=== PATIENT | male | born 1990 | race American Indian/Alaskan Native ===

== ENCOUNTER 2016-07-03 11:15 | Emergency (ER) | payer OTHER ==
[2016-07-03 11:24] VITALS: BP 115/76
[2016-07-03] MEDS ORDERED: EAR WAX DROPS AU ONE (12:01)
[2016-07-03] MEDS ORDERED: HYDROGEN PEROXIDE TP ONE (12:02)
--- NOTE | 2016-07-03 12:10 | Emergency Department Report ---
ED ENT HPI - General Chief complaint: Upper Respiratory Infection Stated complaint: HEADACHE/NASAL CONGESTION/DIFFICULTY HEARING Time Seen by Provider: 07/03/16 11:48 Source: patient Mode of arrival: Ambulatory Limitations: No Limitations - History of Present Illness Initial comments: PT c/o his ears feeling clogged and his hearing has been decreased for 3 months. PT states last week he was sick and went to . PT states that he was told that his sinuses were swollen and told that he needed to buy an ear pump. PT states he went to the store and bought one, but it has not helped. PT does report using qtips. PT states his uri symptoms that he had last week have improved. PT states he has not felt like this before. - Related Data Allergies Allergy/AdvReac Type Severity Reaction Status Date / Time No Known Allergies Allergy Unverified 07/03/16 11:24 ED Dental HPI - General Chief complaint: Upper Respiratory Infection Stated complaint: HEADACHE/NASAL CONGESTION/DIFFICULTY HEARING Time Seen by Provider: 07/03/16 11:48 Source: patient Mode of arrival: Ambulatory Limitations: No Limitations - Related Data Allergies Allergy/AdvReac Type Severity Reaction Status Date / Time No Known Allergies Allergy Unverified 07/03/16 11:24 ED Review of Systems ROS: Stated complaint: HEADACHE/NASAL CONGESTION/DIFFICULTY HEARING Other details as noted in HPI Comment: All other systems reviewed and negative Constitutional: denies: chills, diaphoresis ENT: ear pain ("feels clogged"), hearing loss. denies: congestion (pt states he had last week, but it resolved ) Respiratory: denies: cough, shortness of breath ED Past Medical Hx - Past Medical History Previous Medical History?: No - Surgical History Past Surgical History?: No - Social History Smoking Status: Never Smoker Substance Use Type: Alcohol ED Physical Exam - General Limitations: No Limitations General appearance: alert, in no apparent distress - Head Head exam: Present: atraumatic, normocephalic, normal inspection - Eye Eye exam: Present: normal appearance, PERRL, EOMI. Absent: conjunctival injection Pupils: Present: normal accommodation - ENT ENT exam: Present: normal external ear exam - Expanded ENT Exam Expanded TM/Canal exam: Cerumen Impaction: Right TM, Left TM (unable to see TMs janny due to wax ) Mouth exam: Absent: drooling, trismus Throat exam: Positive: normal inspection - Neck Neck exam: Present: normal inspection, full ROM. Absent: lymphadenopathy - Respiratory Respiratory exam: Present: normal lung sounds bilaterally. Absent: respiratory distress, chest wall tenderness - Cardiovascular Cardiovascular Exam: Present: regular rate, normal rhythm, normal heart sounds - GI/Abdominal GI/Abdominal exam: Present: soft. Absent: tenderness - Extremities Exam Extremities exam: Present: normal inspection, full ROM - Back Exam Back exam: Present: normal inspection, full ROM - Neurological Exam Neurological exam: Present: alert, oriented X3, normal gait - Psychiatric Psychiatric exam: Present: normal affect, normal mood - Skin Skin exam: Present: warm, dry, intact, normal color ED Course Vital Signs 07/03/16 11:21 Temperature 98.8 F Pulse Rate 63 Respiratory 18 Rate Blood Pressure 115/76 O2 Sat by Pulse 100 Oximetry - Reevaluation(s) Reevaluation #1: 07/03/16 12:05 PT gave verbal consent for cerumen removal, however, unable to remove cerumen with plastic curette, pt aware of plan of care. PT given verbal instructions to refrain from using q tips to clean the inner ear. Reevaluation #2: 07/03/16 13:48 Pt tolerated cerumen removal. no immediate complications. - Foreign Body Removal Ear Location: ear canal (R) (janny) Foreign Body Suspected: other (cerumen impaction) Foreign Body Removed: yes Foreign Body Removal Technique: irrigation Tympanic Membrane Intact: Yes Patient Tolerated Procedure: well - Pulse Oximetry Interpretation Digit-Finger Initial Pulse Oximetry Readin Actions Taken: none ED Medical Decision Making - Differential Diagnosis om, sinusitis, oe, cerumen impaction Critical Care Time: No Critical care attestation.: If time is entered above; I have spent that time in minutes in the direct care of this critically ill patient, excluding procedure time. ED Disposition Clinical Impression: Bilateral impacted cerumen Disposition: DISCHARGED TO HOME OR SELFCARE Is pt being admited?: No Does the pt Need Aspirin: No Condition: Stable Instructions: Cerumen Impaction (ED) Referrals: PRIMARY CARE, [Primary Care Provider] - 3-5 Days VINNIE BRAMBILA MD [Staff Physician] - 3-5 Days [facility] [Outside] - 3-5 Days [facility] [Outside] - 3-5 Days Time of Disposition: 13:50
== END 2016-07-03 14:31 | disposition home or self-care (01) ==
LOC: ED 11:15
DX: H61.23 Impacted cerumen, bilateral (principal)

== ENCOUNTER 2017-10-06 12:11 | Emergency (ER) | payer BC, OTHER ==
[2017-10-06 12:34] VITALS: BP 141/91
[2017-10-06] MEDS ORDERED: NACL 0.9% 1000 ML 1,000 ML IV ONE (12:35)
[2017-10-06 13:17] LABS: Basophils % (Auto) 0.7 % (0.0-1.8); Eosinophils # (Auto) 0.1 K/mm3 (0.0-0.4); Eosinophils % (Auto) 1.5 % (0.0-4.3); Hematocrit 42.8 % (35.5-45.6); Hemoglobin 14.7 gm/dl (11.8-15.2); Lymphocytes # (Auto) 1.6 K/mm3 (1.2-5.4); Lymphocytes % (Auto) 34.6 % (13.4-35.0); Mean Corpuscular HGB Conc 34 % (32-34); Mean Corpuscular Hemoglobin 30 pg (28-32); Mean Corpuscular Volume 86 fl (84-94); Monocytes # (Auto) 0.5 K/mm3 (0.0-0.8); Platelet Count 199 K/mm3 (140-440); Red Blood Count 4.99 M/mm3 (3.65-5.03)
[2017-10-06 13:45] LABS: Alanine Aminotransferase 46 units/L (7-56); Albumin 4.4 g/dL (3.9-5); BUN/Creatinine Ratio 13; Blood Urea Nitrogen 12 mg/dL (9-20); Calcium 9.1 mg/dL (8.4-10.2); Hemolysis Index 22
[2017-10-06 14:07] LABS: Bilirubin,Urine NEG (Negative); Blood,Urine NEG (Negative); Color,Urine Yellow (Yellow); Mucus,Urine FEW /HPF; Protein,Urine <15 mg/dL mg/dL (Negative); WBC,Urine < 1.0 /HPF (0.0-6.0)
--- NOTE | 2017-10-06 14:12 | Emergency Department Report ---
ED Abdominal Pain HPI - General Chief Complaint: Abdominal Pain Stated Complaint: ABD PAIN Time Seen by Provider: 10/06/17 14:02 Source: patient Mode of arrival: Ambulatory Limitations: No Limitations - History of Present Illness Initial Comments: This is a 27-year-old male nontoxic, well nourished in appearance, no acute signs of distress presents to the ED with c/o of loose stole and abdominal pain 1 day. Patient denies any nausea or vomiting. Patient describes abdominal pain as cramping and aching with level of 3/10 diffuse. Patient stated that pain has currently stopped and subsided. Patient stated it was loose stole but not diarrhea. Patient denies chest pain, short of breath, fever, chills, headache, stiff neck, abdominal pain, back pain, numbness or tingling. Patient denies any diarrhea or constipation. Patient denies any recent travels. Patient stated denies any allergies or PMH. MD Complaint: abdominal pain -: days(s) (1) Location: diffuse Radiation: none Migration to: no migration Severity: mild Severity scale (0 -10): 0 Quality: cramping, aching Consistency: now resolved Improves With: nothing Worsens With: nothing Associated Symptoms: denies: nausea, vomiting, diarrhea, fever, chills, constipation, dysuria, hematemesis, hematochezia, melena, hematuria, anorexia, syncope - Related Data Previous Rx's Medication Instructions Recorded Last Taken Type Ibuprofen [Motrin] 600 mg PO Q8H PRN #30 tablet 10/06/17 Unknown Rx Allergies Allergy/AdvReac Type Severity Reaction Status Date / Time No Known Allergies Allergy Verified 10/06/17 12:30 ED Review of Systems ROS: Stated complaint: ABD PAIN Other details as noted in HPI Constitutional: denies: chills, fever Eyes: denies: eye pain, eye discharge, vision change ENT: denies: ear pain, throat pain Respiratory: denies: cough, shortness of breath, wheezing Cardiovascular: denies: chest pain, palpitations Endocrine: no symptoms reported Gastrointestinal: abdominal pain. denies: nausea, vomiting, diarrhea, constipation Genitourinary: denies: urgency, dysuria Musculoskeletal: denies: back pain, joint swelling, arthralgia Skin: denies: rash, lesions Neurological: denies: headache, weakness, paresthesias Psychiatric: denies: anxiety, depression Hematological/Lymphatic: denies: easy bleeding, easy bruising ED Past Medical Hx - Past Medical History Previous Medical History?: No - Surgical History Past Surgical History?: No - Social History Smoking Status: Never Smoker Substance Use Type: None - Medications Home Medications: Home Medications Medication Instructions Recorded Confirmed Last Taken Type Ibuprofen [Motrin] 600 mg PO Q8H PRN #30 tablet 10/06/17 Unknown Rx ED Physical Exam - General Limitations: No Limitations General appearance: alert, in no apparent distress - Head Head exam: Present: atraumatic, normocephalic - Eye Eye exam: Present: normal appearance Pupils: Present: normal accommodation - ENT ENT exam: Present: normal exam, mucous membranes moist - Neck Neck exam: Present: normal inspection, full ROM. Absent: tenderness, meningismus, lymphadenopathy - Respiratory Respiratory exam: Present: normal lung sounds bilaterally. Absent: respiratory distress, wheezes, rales, rhonchi, stridor, chest wall tenderness, accessory muscle use, decreased breath sounds, prolonged expiratory - Cardiovascular Cardiovascular Exam: Present: regular rate, normal rhythm, normal heart sounds. Absent: bradycardia, tachycardia, irregular rhythm, systolic murmur, diastolic murmur, rubs, gallop - GI/Abdominal GI/Abdominal exam: Present: soft, normal bowel sounds. Absent: distended, tenderness, guarding, rebound, rigid, diminished bowel sounds, hyperactive bowel sounds, hypoactive bowel sounds, mass, bruit, hernia - Expanded GI/Abdominal Exam Expanded GI/Abdominal exam: Absent: psoas sign, obturator sign, heel tap sign, Lares's sign, Rovsing's sign, tenderness at Mcburney's Point, ascites - Rectal Rectal exam: Present: deferred - Extremities Exam Extremities exam: Present: normal inspection, full ROM, normal capillary refill - Back Exam Back exam: Present: normal inspection, full ROM. Absent: tenderness, CVA tenderness (R), CVA tenderness (L), muscle spasm, paraspinal tenderness, vertebral tenderness, rash noted - Neurological Exam Neurological exam: Present: alert, oriented X3, normal gait - Psychiatric Psychiatric exam: Present: normal affect, normal mood - Skin Skin exam: Present: warm, dry, intact, normal color. Absent: rash ED Course Vital Signs 10/06/17 12:30 Temperature 97.9 F Pulse Rate 64 Respiratory 16 Rate Blood Pressure 141/91 O2 Sat by Pulse 96 Oximetry - Reevaluation(s) Reevaluation #1: 10/06/17 14:13 Patient is speaking in full sentences with no signs of distress noted. ED Medical Decision Making - Lab Data Result diagrams: 10/06/17 12:46 10/06/17 12:46 - Medical Decision Making This is a 27-year-old male that presents with abdominal pain. Patient is stable and was examined by me. There is no abdominal tenderness. Patient staed that all symptoms has resovled and subsided. Patient is requesting a work excuse note. Negative signs of symptoms of appendicitis. Labs obtained. UXray of abdomen obtained and dictated by the radiologist. Patient is notified of the report with no questions noted by the patient. Vital signs are stable prior to discharge. A by mouth challenge has been obtained and patient tolerated well with no nausea vomiting. Patient was notified of strict precautions of appendicitis symptoms and to return to the ED if symptoms occurs as soon as possible. Patient was also instructed to Follow-up with a primary care doctor in 3-5 days or if symptoms worsen and continue return to emergency room as soon as possible. At time of discharge, the patient does not seem toxic or ill in appearance. No acute signs of distress noted. Patient agrees to discharge treatment plan of care. No further questions noted by the patient. Critical care attestation.: If time is entered above; I have spent that time in minutes in the direct care of this critically ill patient, excluding procedure time. ED Disposition Clinical Impression: Abdominal pain Qualifiers: Abdominal location: generalized Qualified Code(s): R10.84 - Generalized abdominal pain Disposition: TO HOME OR SELFCARE Is pt being admited?: No Does the pt Need Aspirin: No Condition: Stable Instructions: Abdominal Pain (ED) Additional Instructions: Follow-up with a primary care doctor in 3-5 days or if symptoms worsen and continue return to emergency room as soon as possible. Prescriptions: Ibuprofen [Motrin] 600 mg PO Q8H PRN #30 tablet PRN Reason: Pain Referrals: PRIMARY CAREMD [Primary Care Provider] - 3-5 Days PERFECTO MART MD [Staff Physician] - 3-5 Days [facility] [Outside] - 3-5 Days [facility] [Outside] - 3-5 Days Forms: Work/School Release Form(ED)
--- NOTE | 2017-10-06 17:30 | XRay Report ---
FINAL REPORT PROCEDURE: XR ABDOMEN 1V AP TECHNIQUE: AP supine portable radiograph of the abdomen was obtained at 10/06/2017 15:27 (T) . HISTORY: Abdominal pain. COMPARISON: No prior studies are available for comparison. FINDINGS: Bowel gas pattern: Mildly reactive nonobstructive bowel gas pattern. Masses or calcifications: None. Bony structures: Normal. Other: None. IMPRESSION: Mildly reactive nonobstructive bowel gas pattern. Consider ileus or enteritis.
== END 2017-10-06 17:48 | disposition home or self-care (01) ==
LOC: ED 12:11
DX: R10.84 Generalized abdominal pain (principal)
CPT/HCPCS: 36415; 74018; 80053; 81001; 85025; 99284

== ENCOUNTER 2020-10-04 07:57 | Emergency (ER) | payer SELFPAY ==
[2020-10-04 08:27] VITALS: BP 134/95
--- NOTE | 2020-10-04 08:52 | Emergency Department Report ---
Chief Complaint: Urogenital-Male Stated Complaint: PAIN IN PRIVATE AREA Time Seen by Provider: 10/04/20 08:42 - HPI History of Present Illness: 30-year-old male presents to the ER today with complaints of penile discharge. Patient states that while he was at work last night, he noticed discomfort when the head of his penis rubbed against his pants and this morning noticed small yellow discharge. He denies any dysuria, hematuria, urinary frequency or urgency. He denies associated lower abdominal pain, back pain testicular pain or swelling. He does admit to having multiple sexual partners. He states that they have been protected, but there are few times when the "condom busted". He reports no additional symptoms at this time. - Exam Vital Signs: Vital Signs 10/04/20 08:26 Temperature 98.6 F Pulse Rate 62 Respiratory 20 Rate Blood Pressure 134/95 [Right] O2 Sat by Pulse 96 Oximetry MSE screening note: Focused history and physical exam performed. Due to findings the following was ordered: ED Medical Decision Making - Medical Decision Making 30-year-old male presents to the ER today with complaints of penile discharge. Patient states that while he was at work last night, he noticed discomfort when the head of his penis rubbed against his pants and this morning noticed small yellow discharge. He denies any dysuria, hematuria, urinary frequency or urgency. He denies associated lower abdominal pain, back pain testicular pain or swelling. He does admit to having multiple sexual partners. He states that they have been protected, but there are few times when the "condom busted". He reports no additional symptoms at this time. 0854: Patient is well-appearing, nontoxic and not in any acute distress. He is neurologically intact with a normal gait. His vital signs are stable. Informed patient he does need to get tested and treated especially for possible STDs but at this time he does not have a life-threatening condition that requires emergent intervention. Patient was provided a list of local clinics that he can follow-up with to get his testing done and treatment. Patient expressed understanding and agree with plan. Patient stable at time of discharge. ED Disposition for MSE Clinical Impression: Encounter for medical screening examination, Penile discharge Disposition: HOME / SELF CARE / HOMELESS Condition: Stable ED Review of Systems ROS: Stated complaint: PAIN IN PRIVATE AREA Other details as noted in HPI Comment: All other systems reviewed and negative Constitutional: denies: chills, fever Eyes: denies: eye pain, eye discharge, vision change ENT: denies: ear pain, throat pain, dental pain, hearing loss, epistaxis, congestion Respiratory: denies: cough, shortness of breath, wheezing Cardiovascular: denies: chest pain, palpitations, dyspnea on exertion, edema, syncope, paroxysmal nocturnal dyspnea Gastrointestinal: denies: abdominal pain, nausea, diarrhea, constipation, hematemesis, hematochezia Genitourinary: discharge. denies: urgency, dysuria, frequency, hematuria, testicular pain, testicular mass Musculoskeletal: denies: back pain, joint swelling, arthralgia Skin: denies: rash, lesions Neurological: denies: headache, weakness, numbness, paresthesias, confusion, abnormal gait, vertigo Psychiatric: denies: anxiety, depression, auditory hallucinations, visual hallucinations, homicidal thoughts, suicidal thoughts Hematological/Lymphatic: denies: easy bleeding, easy bruising, swollen glands ED Physical Exam - General Limitations: No Limitations General appearance: alert, in no apparent distress - Head Head exam: Present: atraumatic, normocephalic, normal inspection - Neck Neck exam: Present: normal inspection, full ROM - Respiratory Respiratory exam: Absent: respiratory distress - Cardiovascular Cardiovascular Exam: Present: regular rate - Neurological Exam Neurological exam: Present: alert, oriented X3, CN II-XII intact, normal gait - Psychiatric Psychiatric exam: Present: normal affect, normal mood - Skin Skin exam: Present: intact
== END 2020-10-04 08:51 | disposition home or self-care (01) ==
LOC: ED 07:57
DX: Z13.9 Encounter for screening, unspecified (principal); R36.9 Urethral discharge, unspecified
CPT/HCPCS: 99281